=== PATIENT | male | born 1960 | race Caucasian/White ===

== ENCOUNTER 2017-03-02 20:20 | Emergency (ER) | payer BC, OTHER ==
--- NOTE | 2017-03-02 20:33 | PDOC ---
History of Present Illness - General History Source: Patient, Old Records Exam Limitations: No Limitations - History of Present Illness Initial Comments: 03/02/17 20:47 The patient is a 56 year old male, with a significant past medical history of hypertension and hyperlipidemia, who presents to the emergency department with a skin avulsion to the palmar aspect of the left hand while the patient was at work earlier this evening. The patient is an employee at [employer], he reports that he was sweeping the floor with a metal broom when it broke in half , injuring him in the process. The patient came straight to the ED for evaluation. The patient states he is UTD with Tetanus, reporting that his most recent Tetanus shot was 3 years ago. The patient denies any other injury or trauma. Allergies: None reported. Past Surgical History: None reported. Social History: Non smoker. Denies alcohol or drug use. PCP: Dr. Olsen <Consuelo Colon - Last Filed: 03/02/17 21:08> <Yoly Sandoval - Last Filed: 03/02/17 21:13> - General Chief Complaint: Injury Stated Complaint: LEFT HAND SKIN AVULSION Time Seen by Provider: 03/02/17 20:28 Past History <Consuelo Colon - Last Filed: 03/02/17 21:08> - Past Medical History HTN: Yes Hypercholesterolemia: Yes Psychiatric Problems: Yes (DEPRESSION) - Immunization History Td Vaccination: Yes (2006) Immunization Up to Date: Yes (FLU 2011 PNA 2005) - Psycho/Social/Smoking Cessation Hx Anxiety: No Suicidal Ideation: No Smoking Status: No Smoking History: Never smoked Have you smoked in the past 12 months: No Number of Cigarettes Smoked Daily: 0 Hx Alcohol Use: No Drug/Substance Use Hx: No <Yoly Sandoval - Last Filed: 03/02/17 21:13> - Past Medical History Allergies/Adverse Reactions: Allergies Allergy/AdvReac Type Severity Reaction Status Date / Time No Known Allergies Allergy Verified 03/02/17 20:26 Review of Systems - Review of Systems Able to Perform ROS?: Yes Comments:: 03/02/17 20:48 GENERAL/CONSTITUTIONAL: No fever or chills. No weakness. SKIN: +Skin avulsion of the left hand. No rash. <Consuelo Colon - Last Filed: 03/02/17 21:08> *Physical Exam - Vital Signs Last Vital Signs Temp Pulse Resp BP Pulse Ox 98.6 F 64 16 155/98 100 03/02/17 20:20 03/02/17 20:20 03/02/17 20:20 03/02/17 20:20 03/02/17 20:20 - Physical Exam Comments: 03/02/17 21:08 GENERAL: Awake, alert, and fully oriented, in no acute distress. EXTREMITIES: Normal range of motion, no edema. No clubbing or cyanosis. No cords , erythema, or tenderness. SKIN: 0.75 cm avulsion to the palmar aspect of the left hand overlying the 2nd MCP joint. Warm, dry, normal turgor, no rashes noted. <Consuelo Colon - Last Filed: 03/02/17 21:08> Procedures - Laceration/Wound Repair Left Hand Wound Length: to 2.5 cm Wound Explored: clean, no foreign body present Wound's Depth, Shape: superficial, linear Irrigated w/ Saline: Yes Anesthesia: 1% Lidocaine Amount of Anesthetic (ccs): 1 Wound Repaired With: Sutures Suture Size/Type: 4:0, proline Number of Sutures: 2 Layer Closure: No Sterile Dressing Applied: Yes Progress: 03/02/17 21:12 Two sutures placed to linear laceration. Patient tolerated well. +Hemostasis. Wound also with small area of avulsed skin lateral to it. Unable to suture, so xeroform was applied. <Yoly Sandoval - Last Filed: 03/02/17 21:13> *DC/Admit/Observation/Transfer - Attestations Scribe Attestion: 03/02/17 20:37 Documentation prepared by Consuelo Colon, acting as medical laboratory manager for Yoly Sandoval MD. <Consuelo Colon - Last Filed: 03/02/17 21:08> - Discharge Dispostion Admit: No <Yoly Sandoval - Last Filed: 03/02/17 21:13> Diagnosis at time of Disposition: Laceration of hand Qualifiers: Encounter type: initial encounter Foreign body presence: without foreign body Laterality: left Qualified Code(s): S61.412A - Laceration without foreign body of left hand, initial encounter - Discharge Dispostion Disposition: HOME Condition at time of disposition: Improved - Referrals Referrals: Spencer Olsen MD [Primary Care Provider] - - Patient Instructions Printed Discharge Instructions: DI for Laceration Repair -- Simple Additional Instructions: KEEP WOUND DRY FOR 48 HOURS. RETURN FOR SUTURE REMOVAL BETWEEN 03/11-03/13. RETURN IMMEDIATELY FOR SEVERE PAIN, SWELLING, DRAINAGE OF PUS, OR REDNESS STREAKING UP THE ARM.
[2017-03-02 20:34] VITALS: BP 155/98; PULSE 64; TEMP 98.6; BMI 27.2
== END 2017-03-02 21:09 | disposition home or self-care (01) ==
LOC: FER 20:20 → SUPCPDRO 20:20 → FER 21:09
PROC: 0HQGXZZ Repair Left Hand Skin, External Approach (ICD-10-PCS; principal; 2017-03-02)
DX: S61.412A Laceration without foreign body of left hand, initial encounter (principal); W45.8XXA Other foreign body or object entering through skin, initial encounter; Y93.89 Activity, other specified; Y92.512 Supermarket, store or market as the place of occurrence of the external cause; Y99.0 Civilian activity done for income or pay
CPT/HCPCS: 99283-25

== ENCOUNTER 2017-03-07 23:28 | Emergency (ER) | payer BC, OTHER ==
[2017-03-07 23:33] VITALS: BP 134/98; PULSE 73; TEMP 97.6; BMI 27.1
--- NOTE | 2017-03-08 00:33 | PDOC ---
History of Present Illness - General Stated Complaint: BLEEDING FROM SUTURE SITE Time Seen by Provider: 03/07/17 23:31 History Source: Patient - History of Present Illness Timing/Duration: 4-6 hours Severity: moderate Associated Symptoms: reports: denies symptoms. denies: chest pain, fever/chills Past History - Past Medical History Allergies/Adverse Reactions: Allergies Allergy/AdvReac Type Severity Reaction Status Date / Time No Known Allergies Allergy Verified 03/07/17 23:29 HTN: Yes Hypercholesterolemia: Yes Psychiatric Problems: Yes (DEPRESSION) - Immunization History Td Vaccination: Yes (2006) Immunization Up to Date: Yes (FLU 2011 PNA 2005) - Psycho/Social/Smoking Cessation Hx Anxiety: No Suicidal Ideation: No Smoking Status: No Smoking History: Never smoked Have you smoked in the past 12 months: No Number of Cigarettes Smoked Daily: 0 Hx Alcohol Use: No Drug/Substance Use Hx: No Review of Systems - Review of Systems All Other Systems: Reviewed and Negative *Physical Exam - Physical Exam General Appearance: Yes: Nourished, Appropriately Dressed Cardiovascular: positive: Regular Rhythm Musculoskeletal: positive: Normal Inspection Extremity: positive: Normal Capillary Refill Integumentary: positive: Other (oozing from suture site on L hand which otherwise seems to be healing well) Neurologic: positive: Alert Medical Decision Making - Medical Decision Making 03/08/17 04:56 oozing from suture site pressure dressing *DC/Admit/Observation/Transfer Diagnosis at time of Disposition: Post-op bleeding Qualifiers: Surgical complication system/body Area: skin Procedure type: non-dermatologic Qualified Code(s): L76.22 - Postprocedural hemorrhage of skin and subcutaneous tissue following other procedure - Discharge Dispostion Disposition: HOME Condition at time of disposition: Stable - Referrals Referrals: Spencer Olsen MD [Primary Care Provider] - - Patient Instructions Printed Discharge Instructions: DI for Laceration Repair -- Simple
== END 2017-03-07 23:35 | disposition home or self-care (01) ==
LOC: FER 23:28
DX: L76.22 Postprocedural hemorrhage of skin and subcutaneous tissue following other procedure (principal); I10 Essential (primary) hypertension; E78.00 Pure hypercholesterolemia, unspecified; F32.9 Major depressive disorder, single episode, unspecified
CPT/HCPCS: 99281-25

== ENCOUNTER 2017-03-12 12:25 | Emergency (ER) | payer OTHER ==
--- NOTE | 2017-03-12 12:29 | PDOC ---
Suture Removal/Wound Check HPI - History of Present Illness Chief Complaint: Suture/Staple Removal(Here) Stated Complaint: suture removal Time Seen by Provider: 03/12/17 12:28 History Source: Yes: Patient Exam Limitations: Yes: No Limitations Treated at: [facility] ED Date of Last ED visit: 03/07/17 - Previous ED Treatment Tetanus Immunization: Yes: Up to Date Antibiotics Prescribed: No - Onset of Previous Treatment Date of Occurence: 03/02/17 Option to Enter number here: 2 Comment:: 03/12/17 12:29 Left hand suture removed Pt states up until yesterday, he had 2 sutures on his hand Currently he has a single suture No surrounding erythema No purulence No drainage Wound appears well approximated 03/12/17 12:31 Past History - Past Medical History Allergies/Adverse Reactions: Allergies No Known Allergies Allergy (Verified 03/12/17 12:29) Surgical History: Yes: No Surgical History - Immunization History Immunizations Up to Date: Yes (FLU 2011 PNA 2005) Tetanus Status: Less than 5 years - Social History Smoking History: No Smoking Status: Never smoked Number of Ciarettes Per Day: 0 Alcohol Use: none Drug Use: none Procedures - Additional Procedures Progress: 03/12/17 12:31 Suture removed, no complaints Medical Decision Making - Medical Decision Making 03/12/17 12:31 A single suture was removed Pt tolerated this well No bleeding or swelling 03/12/17 12:36 *DC/Admit/Observation/Transfer Diagnosis at time of Disposition: Laceration of hand Qualifiers: Encounter type: subsequent encounter Foreign body presence: without foreign body Laterality: left Qualified Code(s): S61.412D - Laceration without foreign body of left hand, subsequent encounter - Discharge Dispostion Disposition: HOME Condition at time of disposition: Stable Admit: No - Referrals Referrals: Spencer Olsen MD [Primary Care Provider] - - Patient Instructions Printed Discharge Instructions: DI for Suture Removal Additional Instructions: Please avoid excessive working Avoid brooms Return to the ER for any other concerns or complaint If you notice any redness around your wound, any pus or any bleeding, come back and see us
[2017-03-12 12:45] VITALS: BP 109/78; PULSE 71; TEMP 97.8; BMI 27.1
== END 2017-03-12 12:47 | disposition home or self-care (01) ==
LOC: FER 12:25
DX: Z48.02 Encounter for removal of sutures (principal); S61.412D Laceration without foreign body of left hand, subsequent encounter
CPT/HCPCS: 99281-25

== ENCOUNTER 2017-11-13 07:43 | Emergency (ER) | payer BC, OTHER ==
[2017-11-13 07:48] VITALS: BP 140/82; PULSE 71; TEMP 97.4; BMI 25.8
--- NOTE | 2017-11-13 07:56 | PDOC ---
History of Present Illness - General Chief Complaint: Laceration Stated Complaint: INJURY Time Seen by Provider: 11/13/17 07:55 History Source: Patient Exam Limitations: No Limitations - History of Present Illness Initial Comments: 11/13/17 08:29 Chief complaint: Laceration Patient 57-year-old male with a history of hypertension, not on anticoagulation or antiplatelet therapy states he cut his left little finger last night at 10 PM with a knife. He states his tetanus is up-to-date. GENERAL/CONSTITUTIONAL: No fever, weakness. dizziness HEAD, EYES, EARS, NOSE AND THROAT: No change in vision. No ear pain or discharge. No sore throat. CARDIOVASCULAR: No chest pain RESPIRATORY: No shortness of breath or cough GASTROINTESTINAL: No pain, nausea, vomiting, diarrhea or constipation GENITOURINARY: No dysuria MUSCULOSKELETAL: No neck or back pain SKIN: No rash, + laceration NEUROLOGIC: No headache, vertigo, loss of consciousness, or loss of sensation. GENERAL: The patient is awake, alert, and fully oriented, in no acute distress. HEAD: Normal with no signs of trauma. EYES: Pupils equal, round and reactive to light, sclera anicteric, conjunctiva clear. ENT: pharynx: no erythema, no exudate, uvula midline NECK: supple CHEST: clear, nontender, rr EXTREMITIES: Left little finger with 1 cm superficial partial skin avulsion to the distal aspect on the medial side, not involving the joint, full range of motion, neurovascular intact. Rest of extremities, normal range of motion, no edema. NEUROLOGICAL: Normal speech, normal gait. SKIN: Warm, Dry Past History - Past Medical History Allergies/Adverse Reactions: Allergies Allergy/AdvReac Type Severity Reaction Status Date / Time No Known Allergies Allergy Verified 11/13/17 07:48 COPD: No HTN: Yes Hypercholesterolemia: Yes Psychiatric Problems: Yes (DEPRESSION) - Immunization History Td Vaccination: Yes (2006) Immunization Up to Date: Yes (FLU 2011 PNA 2005) - Suicide/Smoking/Psychosocial Hx Smoking Status: No Smoking History: Never smoked Have you smoked in the past 12 months: No Number of Cigarettes Smoked Daily: 0 Hx Alcohol Use: Yes (social) Drug/Substance Use Hx: No Substance Use Type: None *Physical Exam - Vital Signs Last Vital Signs Temp Pulse Resp BP Pulse Ox 97.4 F L 71 20 140/82 99 11/13/17 07:44 11/13/17 07:44 11/13/17 07:44 11/13/17 07:44 11/13/17 07:44 Medical Decision Making - Medical Decision Making 11/13/17 08:31 D7-year-old male with history of hypertension with superficial partial skin avulsion left little finger, not involving the joint. Tetanus is up-to-date. Wound closure can be done with Dermabond. *DC/Admit/Observation/Transfer Diagnosis at time of Disposition: Finger laceration Qualifiers: Encounter type: initial encounter Finger: little finger Damage to nail status: without damage Foreign body presence: without foreign body Laterality: left Qualified Code(s): S61.217A - Laceration without foreign body of left little finger without damage to nail, initial encounter - Discharge Dispostion Disposition: HOME Condition at time of disposition: Stable Admit: No - Referrals Referrals: Spencer Olsen MD [Primary Care Provider] - - Patient Instructions Printed Discharge Instructions: DI for Laceration Repair With Dermabond Additional Instructions: Do not get wet Not use any ointment, oil or creams The glue will start cracking off in about 5 days Have reevaluated if any redness, pus or any signs of infection - Post Discharge Activity
== END 2017-11-13 08:18 | disposition home or self-care (01) ==
LOC: JER 07:43
PROC: 0HQGXZZ Repair Left Hand Skin, External Approach (ICD-10-PCS; principal; 2017-11-13)
DX: S61.217A Laceration without foreign body of left little finger without damage to nail, initial encounter (principal); W26.0XXA Contact with knife, initial encounter; Y93.89 Activity, other specified; Y99.8 Other external cause status; Y92.018 Other place in single-family (private) house as the place of occurrence of the external cause
CPT/HCPCS: 99283-25

== ENCOUNTER 2019-01-10 10:12 | Emergency (ER) | payer OTHER, BC ==
[2019-01-10 10:16] VITALS: BP 132/88; PULSE 83; TEMP 97.5; BMI 25.7
[2019-01-10] MEDS ORDERED: DIPHTH,PERTUSS(ACELL),TET VAC 0.5 ML VIAL IM ONE (10:18)
[2019-01-10] MEDS ORDERED: ACETAMINOPHEN 500 MG TABLET (FP) PO ONE (10:52)
[2019-01-10] MEDS ORDERED: CEPHALEXIN MONOHYDRATE 500 MG CAPSULE (UD) PO ONE (10:52)
[2019-01-10] MEDS ORDERED: CEPHALEXIN MONOHYDRATE 500 MG CAPSULE (UD) ONE (11:33)
[2019-01-10] MEDS ORDERED: ACETAMINOPHEN 500 MG TABLET (FP) ONE (11:33)
--- NOTE | 2019-01-10 12:02 | PDOC ---
History of Present Illness - General Chief Complaint: Pain, Acute Stated Complaint: LEFT FOOT PAIN Time Seen by Provider: 01/10/19 10:13 History Source: Patient Exam Limitations: No Limitations - History of Present Illness Timing/Duration: momentarily, 1/2 hour Severity: severe Past History - Travel Traveled outside of the country in the last 30 days: No Close contact w/someone who was outside of country & ill: No - Past Medical History Allergies/Adverse Reactions: Allergies Allergy/AdvReac Type Severity Reaction Status Date / Time No Known Allergies Allergy Verified 01/10/19 10:12 Home Medications: Ambulatory Orders Cephalexin [Keflex] 500 mg PO TID #21 capsule 01/10/19 Crutch 1 each MC ONCE #1 each 01/10/19 COPD: No DVT: No HTN: Yes Hypercholesterolemia: Yes Psychiatric Problems: Yes (DEPRESSION) - Immunization History Td Vaccination: Yes Immunization Up to Date: Yes (FLU 2011 PNA 2005) - Suicide/Smoking/Psychosocial Hx Smoking Status: No Smoking History: Never smoked Have you smoked in the past 12 months: No Number of Cigarettes Smoked Daily: 0 Hx Alcohol Use: Yes (SOCIAL) Drug/Substance Use Hx: No Substance Use Type: None Review of Systems - Review of Systems Constitutional: No: Symptoms Reported, See HPI, Chills, Diaphoresis, Fever, Loss of Appetite, Malaise, Night Sweats, Weakness, Weight Stable, Unintentional Wgt. Loss, Unexplained wgt Loss, Other HEENTM: No: Symptoms Reported, See HPI, Eye Pain, Blurred Vision, Tearing, Recent change in vision, Double Vision, Cataracts, Ear Pain, Ocular Prothesis, Ear Discharge, Nose Pain, Nose Congestion, Tinnitus, Nose Bleeding, Hearing Loss , Throat Pain, Throat Swelling, Mouth Pain, Dental Problems, Difficulty Swallowing, Mouth Swelling, Other Respiratory: No: Symptoms reported, See HPI, Cough, Orthopnea, Shortness of Breath, SOB with Exertion, SOB at Rest, Stridor, Wheezing, Productive cough, Hemoptysis, Other Cardiac (ROS): No: Symptoms Reported, See HPI, Chest Pain, Edema, Irregular Heart Rate, Lightheadedness, Palpitations, Syncope, Chest Tightness, Other ABD/GI: No: Symptoms Reported, See HPI, Abdominal Distended, Abd. Pain w/ defecation, Blood Streaked Bowels, Constipated, Diarrhea, Difficulty Swallowing , Nausea, Poor Appetite, Poor Fluid Intake, Rectal Bleeding, Vomiting, Indigestion, Abdominal cramping, Tarry Stools, Other : No: Symptoms Reported, See HPI, Burning, Dysuria, Discharge, Frequency, Flank Pain, Hematuria, Incontinence, Pain, Urgency, Testicular Mass, Testicular Swelling, Lesions, Testicular Pain, Other Musculoskeletal: Yes: Joint Pain, Joint Swelling (entire left foot swollen and bruised and painful), Joint Stiffness. No: Symptoms Reported, See HPI, Back Pain, Gout, Muscle Pain, Muscle Weakness, Neck Pain, Other Integumentary: Yes: Bruising, Lesions. No: Symptoms Reported, See HPI, Change in Color, Change in Hair/Nails (large abrasion on the lateral left lower leg, where the steel dumpster that had run over his foot went on to scrape and cut his leg), Dryness, Erythema, Flushing, Lumps, Pallor, Pruritus, Rash, Sweating, Other Neurological: No: Symptoms reported, See HPI, Headache, Numbness, Paresthesia, Pre-Existing Deficit, Seizure, Tingling, Tremors, Weakness, Unsteady Gait, Ataxia, Dizziness, Other Psychiatric: No: Anxiety, Depression, Frequent Crying, Stressors, Sleep Pattern Change, Emotional Problems, Mood Swings, Change in Appetite, Other Endocrine: No: Symptoms Reported, See HPI, Excessive Sweating, Flushing, Intolerance to Cold, Intolerance to Heat, Increased Hunger, Increased Thirst, Increased Urine, Unexplained Weight Gain, Unexplained Weight Loss, Change in Weight, Other Hematologic/Lymphatic: No: Symptoms Reported, See HPI, Anemia, Blood Clots, Easy Bleeding, Easy Bruising, Bleeding Diathesis, Lymph Node Abnormalities, Swollen Glands, Other *Physical Exam - Vital Signs Last Vital Signs Temp Pulse Resp BP Pulse Ox 97.5 F L 83 18 132/88 97 01/10/19 10:13 01/10/19 10:13 01/10/19 10:13 01/10/19 10:13 01/10/19 10:13 - Physical Exam General Appearance: Yes: Nourished, Appropriately Dressed, Moderate Distress HEENT: positive: EOMI, PACO, Normal ENT Inspection, Normal Voice, Symmetrical, TMs Normal, Pharynx Normal Neck: positive: Trachea midline, Supple Respiratory/Chest: positive: Lungs Clear, Normal Breath Sounds. negative: Chest Tender, Respiratory Distress Cardiovascular: positive: Regular Rhythm, Regular Rate, S1, S2 Gastrointestinal/Abdominal: positive: Normal Bowel Sounds, Flat, Soft Musculoskeletal: positive: Normal Inspection, CVA Tenderness, Other (lateral left lower leg swollen and tender; left foot swollen dorsal aspect and tender) Extremity: positive: Normal Capillary Refill, Tender, Cyanosis, Pedal Edema, Swelling, Calf Tenderness, Inflammation. negative: Normal Inspection (left foot dorsal aspect swellen 3x larger than the right uninjured foot), Normal Range of Motion (decreased ROM of left toes), Erythema Integumentary: positive: Normal Color, Dry, Warm, Ecchymosis, Bruising Neurologic: positive: um specialist II-XII NML intact, Fully Oriented, Alert, Normal Mood/ Affect, Normal Response, Motor Strength 5/5 Moderate Sedation - Procedure Monitoring Vital Signs: Procedure Monitoring Vital Signs Temperature 97.5 F L 01/10/19 10:13 Pulse Rate 83 01/10/19 10:13 Respiratory Rate 18 01/10/19 10:13 Blood Pressure 132/88 01/10/19 10:13 O2 Sat by Pulse Oximetry (%) 97 01/10/19 10:13 ED Treatment Course - RADIOLOGY Radiology Studies Ordered: Category Date Time Status FOOT-LEFT [RAD] Stat Radiology 01/10/19 10:13 Completed LEG TIB/FIB-LEFT [RAD] Stat Radiology 01/10/19 10:17 Completed - Medications Given in the ED: ED Medications Discontinued Medications Generic Name Dose Route Start Last Admin Trade Name Freq PRN Reason Stop Dose Admin Acetaminophen 1,000 mg 01/10/19 10:52 01/10/19 11:36 Tylenol - PO 01/10/19 10:53 1,000 mg ONCE ONE Administration Cephalexin HCl 500 mg 01/10/19 10:52 01/10/19 11:36 Keflex - PO 01/10/19 10:53 500 mg ONCE ONE Administration Diphtheria/Tetanus/Acell Pertussis 0.5 ml 01/10/19 10:18 01/10/19 11:40 Adacel Adolescent/Adult - IM 01/10/19 10:19 Not Given .ONCE ONE Oxycodone/Acetaminophen 2 combo 01/10/19 10:18 01/10/19 11:40 Percocet 5/325 - PO 02/12/19 10:19 Not Given ONCE ONE Medical Decision Making - Medical Decision Making 01/10/19 12:07 Pt has no fractures surpisingly in the foot. He will be referred to ortho to look for hairline fractures. 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
== END 2019-01-10 12:25 | disposition home or self-care (01) ==
LOC: FER 10:12
DX: S90.812A Abrasion, left foot, initial encounter (principal); S90.32XA Contusion of left foot, initial encounter; S93.602A Unspecified sprain of left foot, initial encounter; X58.XXXA Exposure to other specified factors, initial encounter; Y93.9 Activity, unspecified; Y92.9 Unspecified place or not applicable; Y99.0 Civilian activity done for income or pay; I10 Essential (primary) hypertension; F32.9 Major depressive disorder, single episode, unspecified; E78.00 Pure hypercholesterolemia, unspecified
CPT/HCPCS: 73590-TC-LT-FY; 73630-TC-LT; 99282-25

== ENCOUNTER 2019-02-17 14:19 | Emergency (ER) | payer BC, OTHER ==
--- NOTE | 2019-02-17 14:52 | PDOC ---
History of Present Illness - General History Source: Patient Exam Limitations: No Limitations - History of Present Illness Initial Comments: 02/17/19 16:25 The patient is a 58-year-old male with a past medical history significant for HTN and HLD, compliant with medication presents to the emergency department with rectal bleeding. The patient reports the symptoms been ongoing for the past couple of months. The patient indicates the symptoms are associated with multiple episodes of bloody diarrhea at time and brown stool bowel movement. The patient reports he presented today secondary to an episode of bloody diarrheal bowel incontinence at work today. Denies fever, recent illness, weight loss, dizziness, fatigue, weakness, changes in urination, hematuria, hx of ulcers or GERD. The patient reports having a colonoscopy done about 5 years ago, which was significant for hemorrhoids, denies follow up. FH: Colon CA (brother). No hx of diverticulitis or colitis. Allergies: NKDA PCP: None reported. <Bia Chandra - Last Filed: 02/17/19 16:25> <Ayana Echols - Last Filed: 02/17/19 18:47> - General Chief Complaint: Bleeding from Anus Stated Complaint: BLEEDING FROM ANUS Time Seen by Provider: 02/17/19 14:52 Past History <Bia Chandra - Last Filed: 02/17/19 16:25> - Past Medical History COPD: No DVT: No HTN: Yes Hypercholesterolemia: Yes Psychiatric Problems: Yes (DEPRESSION) - Immunization History Td Vaccination: Yes Immunization Up to Date: Yes (FLU 2011 PNA 2005) - Suicide/Smoking/Psychosocial Hx Smoking Status: No Smoking History: Never smoked Have you smoked in the past 12 months: No Number of Cigarettes Smoked Daily: 0 Hx Alcohol Use: Yes (SOCIAL) Drug/Substance Use Hx: No Substance Use Type: None <Ayana Echols - Last Filed: 02/17/19 18:47> - Past Medical History Allergies/Adverse Reactions: Allergies Allergy/AdvReac Type Severity Reaction Status Date / Time No Known Allergies Allergy Verified 02/17/19 14:22 Review of Systems - Review of Systems Able to Perform ROS?: Yes Comments:: 02/17/19 16:18 GENERAL/CONSTITUTIONAL: No fever or chills. No weakness. HEAD, EYES, EARS, NOSE AND THROAT: No change in vision. No ear pain or discharge. No sore throat. CARDIOVASCULAR: No chest pain or shortness of breath. RESPIRATORY: No cough, wheezing, or hemoptysis. GASTROINTESTINAL: +Rectal bleeding. No nausea, vomiting or constipation. GENITOURINARY: No dysuria, frequency, or change in urination. MUSCULOSKELETAL: No joint or muscle swelling or pain. No neck or back pain. SKIN: No rash NEUROLOGIC: No headache, vertigo, loss of consciousness, or change in strength/ sensation. ENDOCRINE: No increased thirst. No abnormal weight change. HEMATOLOGIC/LYMPHATIC: No anemia, easy bleeding, or history of blood clots. ALLERGIC/IMMUNOLOGIC: No hives or skin allergy. <Bia Chandra - Last Filed: 02/17/19 16:25> *Physical Exam - Vital Signs Last Vital Signs Temp Pulse Resp BP Pulse Ox 97.8 F 74 16 152/93 99 02/17/19 14:21 02/17/19 14:21 02/17/19 14:21 02/17/19 14:21 02/17/19 14:21 - Physical Exam Comments: 02/17/19 16:18 GENERAL: in no acute distress LUNGS: Breath sounds equal, clear to auscultation bilaterally. No wheezes, and no crackles HEART: Regular rate and rhythm, normal S1 and S2, no murmurs, rubs or gallops ABDOMEN: Soft, nontender, No guarding, no rebound. No masses Rectal exam: Good rectal tone. No stool in the rectal vault, 2 external hemorrhoids. EXTREMITIES: Normal range of motion, no edema. No clubbing or cyanosis. No cords, erythema, or tenderness NEUROLOGICAL: Awake, alert and oriented x3. Normal speech, normal gait SKIN: Warm, Dry, normal turgor, no rashes or lesions noted. <Bia Chandra - Last Filed: 02/17/19 16:25> Moderate Sedation - Procedure Monitoring Vital Signs: Procedure Monitoring Vital Signs Temperature 97.8 F 02/17/19 14:21 Pulse Rate 74 02/17/19 14:21 Respiratory Rate 16 02/17/19 14:21 Blood Pressure 152/93 02/17/19 14:21 O2 Sat by Pulse Oximetry (%) 99 02/17/19 14:21 <Bia Chandra - Last Filed: 02/17/19 16:25> ED Treatment Course - LABORATORY CBC & Chemistry Diagram: 02/17/19 16:55 02/17/19 16:55 <Ayana Echols - Last Filed: 02/17/19 18:47> Medical Decision Making - Medical Decision Making 02/17/19 18:38 Pt presents to the ED complaining of a several month history of intermittent rectal bleeding and an episode of incontinence. Good rectal tone and sensation on exam. Guiac negative stool, no anemia on CBC. Rectal bleeding may be secondary to hemorrhoids. Pt instructed to follow up with PMD for referral for colonoscopy and to return to the Ed for worsening bleeding. <Ayana Echols - Last Filed: 02/17/19 18:47> *DC/Admit/Observation/Transfer - Attestations Scribe Attestion: 02/17/19 16:19 Documentation prepared by Bia Chandra, acting as biomedical engineering professor for Ayana Echols MD. <Bia Chandra - Last Filed: 02/17/19 16:25> - Discharge Dispostion Decision to Admit order: No <Ayana Echols - Last Filed: 02/17/19 18:47> Diagnosis at time of Disposition: Rectal bleeding - Discharge Dispostion Disposition: HOME Condition at time of disposition: Good - Referrals Referrals: Jorge Luis Marquis MD [Primary Care Provider] - [facility] [Provider Group] Triston Caceres MD [Staff Physician] - - Patient Instructions Printed Discharge Instructions: DI for Rectal Bleeding Additional Instructions: You came to the ED for rectal bleeding. We did not find blood in your stool on our exam, and you do not have anemia. Your rectal bleeding may be secondary to hemorrhoids, however, you should follow up with your primary care doctor. You need a colonoscopy to rule out other, more severe causes of rectal bleeding. You should return to the ED for abdominal pain, bloody vomit, worsening blood in the stool or black tarry stools, other new or worsening symptoms. - Post Discharge Activity
[2019-02-17 15:32] VITALS: BP 152/93; PULSE 74; TEMP 97.8; BMI 25.8
[2019-02-17 18:26] LABS: BASO % 0.1 % (0-2.0); EOS % 0.7 % (0-4.5); HEMATOCRIT 46.4 % (35.4-49); MCH 29.6 pg (25.7-33.7); MCHC 32.4 g/dl (32.0-35.9); MEAN CELL VOLUME 91.5 fl (80-96); MEAN PLT VOLUME 7.5 fl (7.5-11.1); MONO % 9.4 % (3.8-10.2); NEUT % 74.8 % (42.8-82.8); PLATELET COUNT 206 K/MM3 (134-434); RBC 5.07 M/mm3 (4.00-5.60); RDW 12.4 % (11.9-15.9); WHITE BLOOD COUNT 7.7 K/mm3 (4.0-10.8)
[2019-02-17 18:30] LABS: ALBUMIN 4.1 g/dl (3.4-5.0); ALK PHOS 58 U/L (45-117); ANION GAP 6 MMOL/L (8-16); BILIRUBIN,TOTAL 0.9 mg/dl (0.2-1); BLOOD UREA NITROGEN 15 mg/dl (7-18); CALCIUM 8.9 mg/dl (8.5-10); CHLORIDE 104 mmol/L (98-107); CO2 28 mmol/L (21-32); CREATININE 0.8 mg/dl (0.55-1.3); GLUCOSE,RANDOM 80 mg/dl (74-106); SGOT/AST 26 U/L (15-37); SGPT/ALT 19 U/L (13-61); SODIUM 138 mmol/L (136-145); TOT PROT 6.6 g/dl (6.4-8.2)
== END 2019-02-17 18:59 | disposition home or self-care (01) ==
LOC: FER 14:19
DX: K62.5 Hemorrhage of anus and rectum (principal); I10 Essential (primary) hypertension; E78.5 Hyperlipidemia, unspecified; F32.9 Major depressive disorder, single episode, unspecified
CPT/HCPCS: 36415; 80053; 82272; 85025; 99282-25

== ENCOUNTER 2021-05-30 09:57 | Emergency (ER) | payer BC ==
[2021-05-30 10:12] VITALS: BP 143/97; PULSE 18; TEMP 98.8; BMI 27.2
[2021-05-31 12:08] LABS: SARS-CoV-2 NAA Not Detected (Not Detected)
== END 2021-05-30 11:39 | disposition home or self-care (01) ==
LOC: FER 09:57
DX: R50.9 Fever, unspecified (principal); R09.89 Other specified symptoms and signs involving the circulatory and respiratory systems
CPT/HCPCS: 71046-TC-FY; 99284-25; C9803; U0003; U0005

== ENCOUNTER 2022-06-06 10:54 | Emergency (ER) | payer BC ==
[2022-06-06 11:05] VITALS: BP 128/82; PULSE 77; TEMP 98.1; BMI 28.1
[2022-06-06] MEDS ORDERED: LIDOCAINE 5% TOPICAL PATCH TP ONE (12:30)
[2022-06-06] MEDS ORDERED: IBUPROFEN 600 MG TABLET (FP) PO ONE ×2 (12:31→12:48)
[2022-06-06] MEDS ORDERED: LIDOCAINE 5% TOPICAL PATCH ONE (12:48)
[2022-06-06] MEDS ORDERED: LIDOCAINE PATCH REMOVAL MC SCH (22:00)
== END 2022-06-06 14:45 | disposition home or self-care (01) ==
LOC: FER 10:54
DX: M70.62 Trochanteric bursitis, left hip (principal); R31.9 Hematuria, unspecified
CPT/HCPCS: 73502-TC-LT-FY; 74176-TC; 81003; 81015; 87086; 99285-25

== ENCOUNTER 2022-10-01 17:21 | Emergency (ER) | payer BC ==
[2022-10-01 17:27] VITALS: BP 143/82; PULSE 83; RESP 18; TEMP 98; BMI 27.5
[2022-10-01] MEDS ORDERED: ACETAMINOPHEN 500 MG TABLET (FP) PO ONE (20:30)
[2022-10-01] MEDS ORDERED: ACETAMINOPHEN 325 MG TABLET (FP) ONE (20:45)
== END 2022-10-01 23:13 | disposition home or self-care (01) ==
LOC: JER 17:21
DX: M79.605 Pain in left leg (principal)
CPT/HCPCS: 93971-TC; 99283-25

== ENCOUNTER 2022-10-24 10:56 | Emergency (ER) | payer BC ==
[2022-10-24 11:06] VITALS: BP 126/80; PULSE 82; RESP 16; TEMP 99.3; BMI 27.2
== END 2022-10-24 12:14 | disposition home or self-care (01) ==
LOC: FER 10:56
DX: J09.X2 Influenza due to identified novel influenza A virus with other respiratory manifestations (principal)
CPT/HCPCS: 0241U-QW; 71046-TC-FY; 99284-25

== ENCOUNTER 2023-02-26 06:52 | Emergency (ER) | payer BC ==
[2023-02-26 07:17] VITALS: BP 153/73; PULSE 69; RESP 16; TEMP 97.8; BMI 31.5
== END 2023-02-26 07:47 | disposition home or self-care (01) ==
LOC: FER 06:52
DX: K59.00 Constipation, unspecified (principal)
CPT/HCPCS: 99282-25

== ENCOUNTER 2023-10-26 10:11 | Emergency (ER) | payer OTHER, BC ==
[2023-10-26 10:36] VITALS: BP 139/96; PULSE 66; RESP 16; TEMP 97.8; BMI 26.4
== END 2023-10-26 11:10 | disposition home or self-care (01) ==
LOC: FER 10:11
DX: R05.1 Acute cough (principal); R09.81 Nasal congestion; J06.9 Acute upper respiratory infection, unspecified; Z20.822 Contact with and (suspected) exposure to COVID-19
CPT/HCPCS: 0241U-QW; 71046-TC-FY; 99284-25

== ENCOUNTER 2023-12-22 10:04 | Emergency (ER) | payer OTHER, BC ==
[2023-12-22 10:49] VITALS: RESP 18; BMI 26.4
[2023-12-22] MEDS ORDERED: ACETAMINOPHEN 500 MG TABLET (FP) PO ONE (11:46)
[2023-12-22] MEDS ORDERED: ACETAMINOPHEN 500 MG TABLET (FP) ONE (11:51)
[2023-12-22 13:30] VITALS: BP 138/80; PULSE 68; TEMP 98.6
== END 2023-12-22 14:05 | disposition home or self-care (01) ==
LOC: JERFT 10:04
DX: R09.81 Nasal congestion (principal); R05.9 Cough, unspecified; R51.9 Headache, unspecified; U07.1 COVID-19
CPT/HCPCS: 0241U-QW; 99283-25

== ENCOUNTER 2024-06-11 17:27 | Emergency (ER) | payer OTHER, BC ==
[2024-06-11 17:36] VITALS: BP 128/84; PULSE 67; RESP 18; TEMP 98.5; BMI 26.5
== END 2024-06-11 18:05 | disposition home or self-care (01) ==
LOC: FER 17:27
DX: K64.9 Unspecified hemorrhoids (principal)
CPT/HCPCS: 99283-25